=== PATIENT | female | born 1990 | race Caucasian/White ===

== ENCOUNTER 2018-02-28 21:51 | Emergency (ER) | payer OTHER ==
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
[2018-02-28] MEDS ORDERED: CYCLOBENZAPRINE 10 MG TAB PO ONE ×2 (22:05→23:57)
[2018-02-28] MEDS ORDERED: IBUPROFEN 800 MG TAB PO ONE (22:05)
[2018-02-28] MEDS ORDERED: NS 1,000 ML IV ONE (22:05)
[2018-02-28 22:31] LABS: PLATELET COUNT 433 10^3/uL (150-400)
[2018-02-28] MEDS ORDERED: IOPAMIDOL (ISOVUE-300) 100 ML BTL ONE (22:44)
[2018-02-28 23:54] VITALS: BP 128/85
[2018-02-28] MEDS ORDERED: IBUPROFEN 600 MG TAB PO ONE (23:57)
== END 2018-03-01 00:08 | disposition home or self-care (01) ==
DX: R10.10 Upper abdominal pain, unspecified (principal); M25.561 Pain in right knee; M79.641 Pain in right hand
CPT/HCPCS: Q9967